=== PATIENT | male | born 1990 | race Caucasian/White ===

== ENCOUNTER 2018-11-09 16:21 | Emergency (ER) | payer OTHER ==
[~2018-11-09] VITALS: Ht 170.2 cm; Wt 144.0 kg
--- NOTE | 2018-11-09 16:39 | ECGEPIP ---
[facility] - ED Test Date: 2018-11-09 Pat Name: [employer] Department: Room: - Gender: Male Claims Supervisor: VU : 1990 Requested By: AMISHA OLIVAS Order Number: [id number] Reading MD: Chary Malcolm Measurements Intervals [place] Rate: 69 P: 69 DE: 137 QRS: 86 QRSD: 92 T: 44 QT: 381 QTc: 409 Interpretive Statements SINUS RHYTHM INCOMPLETE RIGHT BUNDLE BRANCH BLOCK NO PRIOR Electronically Signed on 11-09-2018 16:38:47 EDT by Chary Malcolm
[2018-11-09] MEDS ORDERED: ALBUTEROL 90 MCG/ACT 8GM HFA INHALER INH ONE (17:15)
[2018-11-09 18:15] VITALS: BP 128/74
--- NOTE | 2018-11-10 07:46 | REP ---
CHEST, TWO VIEWS: There is no evidence of acute infiltrate. No pleural effusion is seen. The heart is normal in size. The mediastinal silhouette is unremarkable. The visualized osseous structures are intact. IMPRESSION: No acute pulmonary disease. Electronically Signed by Manish Stoner MD 11/11/2018 09:49 A
== END 2018-11-09 18:17 | disposition home or self-care (01) ==
LOC: M ED 16:21
DX: R06.00 Dyspnea, unspecified (principal); F41.9 Anxiety disorder, unspecified